=== PATIENT | male | born 1950 | race African-American/Black ===

== ENCOUNTER 2023-05-21 07:50 | Emergency (ER) | payer MEDICAID, SELFPAY ==
[2023-05-21 08:04] VITALS: BP 136/86; PULSE 108; RESP 20; TEMP 38.3; O2SAT 96; BMI 32.3
--- NOTE | 2023-05-21 08:21 | CRLHL7_ITS ---
For Patients: As a result of the Century Cures Act, medical imaging exams and procedure reports are released immediately into your electronic medical record. You may view this report before your referring provider. If you have questions, please contact your health care provider. Indication: Pain, fever Technique: Volumetric multidetector CT images of the abdomen and pelvis were obtained after the administration of intravenous contrast. 98 cc Isovue 370 low osmolar intravenous contrast Comparison: None available. Findings: There is minimal basilar atelectasis and parenchymal scar. Cystic changes are appreciated within right liver. There is no focal abnormality. The portal vein is patent. The gallbladder is unremarkable without evidence of radiopaque calculus. There is no significant common biliary ductal dilatation or abrupt cut off. The spleen is normal in enhancement and size. The stomach and duodenum are grossly unremarkable. The pancreas is normal in enhancement without significant atrophy. The adrenal glands are unremarkable. The kidneys demonstrate preserved corticomedullary differentiation without evidence of obstructive uropathy. There is moderate stool seen throughout the colon with distal colonic diverticulosis. There is no evidence of diverticulitis. There is minimal nonspecific fluid and hyperemia of mid to distal small bowel loops. There is questionable developing fecalization of distal loops of terminal ileum. The appendix is unremarkable. There is no significant mesenteric, retroperitoneal, or pelvic sidewall lymph nodes. The aorta is nonaneurysmal. There is no significant atherosclerotic disease appreciated. The solid pelvic viscera are grossly unremarkable. There is no free fluid or free air. There is a small fat containing umbilical hernia. There is mild diastasis of the rectus musculature. There is mild multilevel degenerative disc disease with endplate Schmorl`s defects. There is no significant spondylolisthesis or displaced fracture. Impression: Nonspecific fluid-filled central small bowel with mucosal hyperemia and mild inspissation of enteric contents in the distal terminal ileum which may represent enteritis changes and/or slow transit. No definite obstruction is identified. Otherwise, no definite acute intra-abdominal abnormality is identified. Cystic changes of the right liver lobe are appreciated. Please note that all CT scans at this facility use dose modulation, iterative reconstruction, and/or weight-based dosing when appropriate to reduce radiation dose to as low as reasonably achievable. Dictated by Jer Jesus MD @ 05/21/2023 10:19:28 AM (Electronically Signed)
--- NOTE | 2023-05-21 08:22 | CRLHL7_ITS ---
For Patients: As a result of the Cures Act, medical imaging exams and procedure reports are released immediately into your electronic medical record. You may view this report before your referring provider. If you have questions, please contact your health care provider. INDICATION: Fever COMPARISON: None TECHNIQUE: Single-view study May 21, 2023 FINDINGS: TUBES AND LINES: None. HEART AND MEDIASTINUM: The heart size is normal. The mediastinal contour appears normal for patient age. LUNGS AND PLEURAL SPACES: The lungs appear normal.The pleural spaces are unremarkable. OSSEOUS STRUCTURES: Age-appropriate appearance. No acute focal finding. IMPRESSION: No evidence of active pulmonary disease. Dictated by Gabino Vargas MD @ 05/21/2023 10:36:33 AM (Electronically Signed)
--- NOTE | 2023-05-21 08:23 | ED_ITS ---
HPI - General Adult General Time Seen by Provider: 08:24 Date Seen: 05/21/23 Chief complaint: Fever Stated complaint: rash Time Seen by Provider: 05/21/23 07:53 Source: patient Mode of arrival: ambulatory Limitations: no limitations History of Present Illness HPI narrative: Patient is a 72-year-old black male who has hives and has had a low-grade fever over the last 24 hours. He denies any other specific symptoms other than periumbilical abdominal pain. He denies dysuria, frequency, hematuria, diarrhea or constipation. He has had a hernia repair in the past in his abdomen by his report. He has no cough, no chest pain, no rigors. Patient has had no dysuria. Temp was noted to be 100.9 in the triage intake. Patient lives in [place]. He was seen in urgent care on Friday 2 days ago and started on prednisone he has not noticed much different and the hives. He denies any new medications or potential allergens. Does have a history of hypertension which he takes medication and he has chronic knee arthritis on the left that he takes meloxicam, as well as tamsulosin for prostate hypertrophy. Related Data Home Medications Medication Instructions Recorded Confirmed celecoxib 100 mg capsule 100 mg PO BID 05/21/23 05/21/23 cetirizine 10 mg tablet 10 mg PO DAILY 05/21/23 05/21/23 hydrochlorothiazide PO 05/21/23 hydrochlorothiazide 25 mg tablet 25 mg PO DAILY 05/21/23 05/21/23 meloxicam 7.5 mg tablet 7.5 mg PO DAILY 05/21/23 05/21/23 prednisone 10 mg tablet PO 05/21/23 rosuvastatin 10 mg tablet 10 mg PO QPM 05/21/23 05/21/23 tamsulosin 0.4 mg capsule 0.4 mg PO DAILY 05/21/23 05/21/23 Previous Rx's Medication Instructions Recorded ciprofloxacin HCl 500 mg tablet 500 mg PO BID #14 tabs 05/21/23 (Cipro) Allergies Allergy/AdvReac Type Severity Reaction Status Date / Time No Known Drug Allergies Allergy Verified 05/21/23 10:10 Review of Systems Status of ROS: Reports: 6 or more systems reviewed and unremarkable except as noted in History and below PFSH PFS Surgical History History of ventral hernia repair ?Z98.890 - Other specified postprocedural states (ICD-10) ?Z87.19 - Personal history of other diseases of the digestive system (ICD-10) Exam Narrative: Exam Narrative: Objective: Temp is 100.9? O2 sat 96% on room air In general patient is no apparent distress talks in even unlabored sentences, no cyanosis, he does have diffuse hives over his face neck, chest, back, legs. Lungs are clear Throat is clear Heart rhythm regular without murmur Abdomen benign soft no mass or peritonitis he does report periumbilical abdominal pain. No back pain No lower extremity swelling swelling or redness. Const: Vital Signs, click to edit/add: Vital Signs - 24 hr 05/21/23 08:04 05/21/23 09:19 05/21/23 10:37 Temperature 100.9 F H Pulse Rate 105 H Pulse Rate [Pulse Oximeter] 108 H Respiratory Rate 20 Blood Pressure 128/80 Blood Pressure [Ri ght Upper Arm] 136/86 Pulse Oximetry 96 98 Oxygen Delivery Me thod Room Air 05/21/23 10:45 Temperature Pulse Rate 99 Pulse Rate [Pulse Oximeter] Respiratory Rate Blood Pressure Blood Pressure [Ri ght Upper Arm] Pulse Oximetry 97 Oxygen Delivery Me thod Course Vital Signs Vital signs: Initial Vital Signs Temperature 100.9 F H 05/21/23 08:04 Temperature Source Temporal Artery Scan 05/21/23 08:04 Pulse Rate 108 H 05/21/23 08:04 Pulse Rhythm Regular 05/21/23 08:04 Respiratory Rate 20 05/21/23 08:04 Blood Pressure 136/86 05/21/23 08:04 Blood Pressure Mean 102 05/21/23 08:04 Pulse Oximetry 96 05/21/23 08:04 Oxygen Delivery Method Room Air 05/21/23 08:04 Vital Signs Temperature 100.9 F H 05/21/23 08:04 Pulse Rate 108 H 05/21/23 08:04 Respiratory Rate 20 05/21/23 08:04 Blood Pressure 136/86 05/21/23 08:04 Pulse Oximetry 96 05/21/23 08:04 Oxygen Delivery Method Room Air 05/21/23 08:04 Temperature 100.9 F H 05/21/23 08:04 Pulse Rate 99 05/21/23 10:45 Respiratory Rate 20 05/21/23 08:04 Blood Pressure 128/80 05/21/23 09:19 Pulse Oximetry 97 05/21/23 10:45 Oxygen Delivery Method Room Air 05/21/23 08:04 Medical Decision Making MDM Narrative Medical decision making narrative: 9-year-old black male with a few day history of hives as well as now low-grade fever. Rule out infectious source, blood cultures, will get a COVID/influenza/RSV test, will get a CRP, laboratory studies, will give IV fluid, IV Solu-Medrol and IV Benadryl. Will get a CT scan of his abdomen because he has periumbilical abdominal pain and this fever. Disposition pending findings above and response.\ Addendum 10:45 a.m. patient's labs look reassuring other than his CRP is elevated 8.3. His urinalysis also shows 1+ leukocyte esterase 10-25 white cells per high-powered field and bacteria, his viral studies are negative. He will be given IV Rocephin for his presumed UTI. Will also cover him with Cipro 500 b.i.d. times 7 days. Light activity, light diet recommended. Follow up with primary care in 2-3 days. Return to ED sooner problems or concerns. Lab Data Labs: Lab Results 05/21/23 05/21/23 05/21/23 Range/Units 09:00 09:05 09:07 WBC 9.07 (4.50-11.00) K/uL RBC 5.51 (4.30-5.90) m/uL Hgb 15.7 (13.5-17.5) gm/dL Hct 48.1 (37.0-53.0) % MCV 87 (80-100) fL MCH 29 (26-34) pg MCHC 33 (32-36) gm/dL RDW Coeff of Indra 13.0 (11.5-15.5) % Plt Count 180 (140-440) K/uL Neut % (Auto) 82.3 H (42.0-72.0) % Lymph % (Auto) 11.5 L (20-44) % [place] % (Auto) 5.8 (0.0-11.0) % Eos % (Auto) 0.1 (0.0-7.0) % Baso % (Auto) 0.1 (0.0-3.0) % Neut # (Auto) 7.50 H (1.7-7.0) K/uL Lymph # (Auto) 1.00 (0.90-2.90) K/uL [place] # (Auto) 0.50 (0.00-0.90) K/UL Eos # (Auto) 0.01 (0.00-0.50) K/uL Baso # (Auto) 0.01 (0.00-0.30) K/uL Abs Immat Gran (auto) 0.02 (0.00-0.30) K/uL Imm/Tot Granulo (auto) 0.2 % Sodium 133 L (135-149) mmol/L Potassium 3.3 L (3.6-5.1) mmol/L Chloride 101 (96-114) mmol/L Carbon Dioxide 22 (20-32) mmol/L Anion Gap 10 (7-15) mEq/L BUN 21 (7-30) mg/dL Creatinine 0.8 (0.5-1.5) mg/dL Estimated Creat Clear 62.03 Estimated GFR 95 ml/min Glucose 147 H (60-115) mg/dL Calcium 8.2 L (8.4-10.6) mg/dL Total Bilirubin 1.0 (0.1-1.5) mg/dL Direct Bilirubin 0.0 (0.0-0.5) mg/dL AST 41 H (12-35) U/L ALT 21 (4-50) U/L Alkaline Phosphatase 43 (40-150) U/L C-Reactive Protein 8.3 H (0.5-1.0) mg/dL Total Protein 6.3 (6.0-8.3) g/dL Albumin 3.6 (3.3-5.0) g/dL Amylase 75 (18-89) U/L Urine Color (Yellow) Urine Appearance (Clear) Urine pH (5.0-8.5) Ur Specific [place] (1.000-1.030) Urine Protein (Negative) Urine Glucose (UA) (Negative) Urine Ketones (Negative) Urine Blood (Negative) Urine Nitrite (Negative) Urine Bilirubin (Negative) Urine Urobilinogen (0.2-1.0) Ur Leukocyte Esterase (Negative) Urine RBC (0-2) Urine WBC (0-5) Ur Squamous Epith Cells (None-Few) Urine Bacteria (None) SARS-CoV-2 (PCR) Negative SARS-CoV-2 (Negative) Influenza Type A (PCR) Negative PCR FLU A (Negative) Influenza Type B (PCR) Negative PCR FLU B (Negative) RSV (PCR) Negative PCR RSV (Negative) POC Troponin I 0.02 (0.01-0.04) ng/ml 05/21/23 Range/Units 09:56 WBC (4.50-11.00) K/uL RBC (4.30-5.90) m/uL Hgb (13.5-17.5) gm/dL Hct (37.0-53.0) % MCV (80-100) fL MCH (26-34) pg MCHC (32-36) gm/dL RDW Coeff of Indra (11.5-15.5) % Plt Count (140-440) K/uL Neut % (Auto) (42.0-72.0) % Lymph % (Auto) (20-44) % [place] % (Auto) (0.0-11.0) % Eos % (Auto) (0.0-7.0) % Baso % (Auto) (0.0-3.0) % Neut # (Auto) (1.7-7.0) K/uL Lymph # (Auto) (0.90-2.90) K/uL [place] # (Auto) (0.00-0.90) K/UL Eos # (Auto) (0.00-0.50) K/uL Baso # (Auto) (0.00-0.30) K/uL Abs Immat Gran (auto) (0.00-0.30) K/uL Imm/Tot Granulo (auto) % Sodium (135-149) mmol/L Potassium (3.6-5.1) mmol/L Chloride (96-114) mmol/L Carbon Dioxide (20-32) mmol/L Anion Gap (7-15) mEq/L BUN (7-30) mg/dL Creatinine (0.5-1.5) mg/dL Estimated Creat Clear Estimated GFR ml/min Glucose (60-115) mg/dL Calcium (8.4-10.6) mg/dL Total Bilirubin (0.1-1.5) mg/dL Direct Bilirubin (0.0-0.5) mg/dL AST (12-35) U/L ALT (4-50) U/L Alkaline Phosphatase (40-150) U/L C-Reactive Protein (0.5-1.0) mg/dL Total Protein (6.0-8.3) g/dL Albumin (3.3-5.0) g/dL Amylase (18-89) U/L Urine Color Yellow (Yellow) Urine Appearance Clear (Clear) Urine pH 6.0 (5.0-8.5) Ur Specific [place] 1.025 (1.000-1.030) Urine Protein 2+ A (Negative) Urine Glucose (UA) Negative (Negative) Urine Ketones Negative (Negative) Urine Blood Trace-intact A (Negative) Urine Nitrite Negative (Negative) Urine Bilirubin Negative (Negative) Urine Urobilinogen 0.2 (0.2-1.0) Ur Leukocyte Esterase 1+ A (Negative) Urine RBC 0-2 (0-2) Urine WBC 10-25 A (0-5) Ur Squamous Epith Cells None (None-Few) Urine Bacteria Few A (None) SARS-CoV-2 (PCR) (Negative) Influenza Type A (PCR) (Negative) Influenza Type B (PCR) (Negative) RSV (PCR) (Negative) POC Troponin I (0.01-0.04) ng/ml Discharge Plan Discharge Clinical Impression: Fever, Urticaria, Urinary tract infection Patient Disposition: Home w/ Parent or Adult Condition: Stable Instructions: Urinary Tract Infection in Men (ED), Urticaria (ED) Additional Instructions: Light diet, start with fluids and advance to Jell-O and soup as able. Would recommend you continue on antibiotic in the form of Cipro 2 times a day for the next 7 days. Recheck with your regular doctor next 2-3 days. Finish your prednisone, use Benadryl 25-50 mg 3 times a day over the next 3-5 days. Return to emergency department problems or concerns. Would use Benadryl instead of the cetirizine for Allergy and hives Activity Level: Light activity Discharge Diet: Full Liquid Prescriptions: New ciprofloxacin HCl [Cipro] 500 mg tablet 500 mg PO BID Qty: 14 0RF No Action hydrochlorothiazide PO cetirizine 10 mg tablet 10 mg PO DAILY meloxicam 7.5 mg tablet 7.5 mg PO DAILY tamsulosin 0.4 mg capsule 0.4 mg PO DAILY hydrochlorothiazide 25 mg tablet 25 mg PO DAILY celecoxib 100 mg capsule 100 mg PO BID rosuvastatin 10 mg tablet 10 mg PO QPM prednisone 10 mg tablet PO Stand Alone Forms: My[facility] Info Instructions
[2023-05-21 09:19] VITALS: BP 128/80
[2023-05-21] MEDS: METHYLPREDNISOLONE SOD SUCC 62.5 MG/ML (125) 125 MG IVP (09:20)
[2023-05-21] MEDS: diphenhydrAMINE 50 MG/ML inj 25 MG IVP (09:20)
[2023-05-21] MEDS: 0.9 % SODIUM CHLORIDE 1000 ml 1,000 ML 6000 ML IV (09:20)
[2023-05-21 09:21] LABS: Basophils Absolute Auto 0.01 K/uL (0.00-0.30); Basophils Percent Auto 0.1 % (0.0-3.0); Eosinophils Absolute Auto 0.01 K/uL (0.00-0.50); Eosinophils Percent Auto 0.1 % (0.0-7.0); Hematocrit 48.1 % (37.0-53.0); Hemoglobin* 15.7 gm/dL (13.5-17.5); Immature Granulocytes Abs Auto 0.02 K/uL (0.00-0.30); Immature Granulocytes Pct Auto 0.2 %; Lymphocytes Percent Auto 11.5 % (20-44); Mean Corpuscular HGB Conc 33 gm/dL (32-36); Mean Corpuscular Hemoglobin 29 pg (26-34); Mean Corpuscular Volume 87 fL (80-100); Monocytes Percent Auto 5.8 % (0.0-11.0); Neutrophils Percent Auto 82.3 % (42.0-72.0); Platelet Count* 180 K/uL (140-440); Red Blood Count 5.51 m/uL (4.30-5.90); White Blood Count* 9.07 K/uL (4.50-11.00)
[2023-05-21 09:28] LABS: Slide Review Reflex No
[2023-05-21 09:37] LABS: Albumin* 3.6 g/dL (3.3-5.0)
[2023-05-21 09:38] LABS: Chloride* 101 mmol/L (96-114); Potassium* 3.3 mmol/L (3.6-5.1); Sodium* 133 mmol/L (135-149)
[2023-05-21 09:40] LABS: Amylase* 75 U/L (18-89); Creatinine* 0.8 mg/dL (0.5-1.5); Est. Creatinine Clearance* 62.03; Estimated Glomerular Filt Rate 95 ml/min
[2023-05-21 09:41] LABS: Alanine Aminotransferase* 21 U/L (4-50); Alkaline Phosphatase* 43 U/L (40-150); Anion Gap 10 mEq/L (7-15); Aspartate Amino Transferase* 41 U/L (12-35); Blood Urea Nitrogen* 21 mg/dL (7-30); Calcium* 8.2 mg/dL (8.4-10.6); Carbon Dioxide* 22 mmol/L (20-32); Glucose* 147 mg/dL (60-115); Total Protein* 6.3 g/dL (6.0-8.3)
[2023-05-21 09:44] LABS: C Reactive Protein* 8.3 mg/dL (0.5-1.0)
[2023-05-21 09:59] LABS: PCR FLU A Negative PCR FLU A (Negative); PCR FLU B Negative PCR FLU B (Negative); PCR RSV Negative PCR RSV (Negative)
[2023-05-21 10:01] LABS: SARS PCR* Negative SARS-CoV-2 (Negative)
[2023-05-21 10:09] LABS: Troponin, Point-of-Care* 0.02 ng/ml (0.01-0.04)
[2023-05-21 10:16] LABS: Appearance Urine Clear (Clear); Bilirubin Urine Negative (Negative); Blood Urine Trace-intact (Negative); Color Urine Yellow (Yellow); Glucose Urine Negative (Negative); Ketones Urine Negative (Negative); Leukocyte Esterase Urine 1+ (Negative); Nitrite Urine Negative (Negative); Protein Urine 2+ (Negative); Specific Gravity Urine 1.025 (1.000-1.030); Urobilinogen Urine 0.2 (0.2-1.0)
[2023-05-21 10:22] LABS: Bacteria Urine Few; RBC Urine 0-2 (0-2)
[2023-05-21] MEDS: ACETAMINOPHEN 500 MG TABLET 1000 MG PO (10:30)
[2023-05-21 10:37] VITALS: PULSE 105; O2SAT 98
[2023-05-21 10:45] VITALS: PULSE 99; O2SAT 97
[2023-05-21] MEDS: cefTRIAXone 1 GM in 0.9 % SODIUM CHLORIDE Mini-bag 100 ML IVPB (11:08)
== END 2023-05-21 12:04 | disposition home or self-care (01) ==
PROVIDERS: Emergency Provider Family Medicine
DX: N39.0 Urinary tract infection, site not specified (principal); L50.9 Urticaria, unspecified; R50.9 Fever, unspecified
CPT/HCPCS: 36415; 71045; 74177; 80048; 80076; 81001; 82150; 84484; 85025; 86140; 87040; 87086; 87631; 96365; 96375; 99284; 99285; A9270; J0696; J1200; J2930; J7030; Q9967

== ENCOUNTER 2023-05-23 09:07 | Emergency (ER) | payer MEDICAID, SELFPAY ==
[2023-05-23] VITALS (10 sets, daily range): BP systolic 126–148; BP diastolic 77–92; PULSE 76–99; RESP 18; TEMP 36.8; O2SAT 88–99; BMI 32.3
--- NOTE | 2023-05-23 09:31 | CRLHL7_ITS ---
For Patients: As a result of the Century Cures Act, medical imaging exams and procedure reports are released immediately into your electronic medical record. You may view this report before your referring provider. If you have questions, please contact your health care provider. INDICATION: Abdominal pain COMPARISON: CT 05/21/2023 TECHNIQUE: 2 view abdominal radiograph. FINDINGS: No dilated bowel loops. Moderate stool burden. No worrisome air fluid levels. No free air. No organomegaly or mass effect. No worrisome calcifications. Lung bases: Clear. Bones: Transitional lumbosacral segment with mild disc degenerative change and facet arthritis. Bilateral hip osteoarthritis. No acute osseous findings. IMPRESSION: Normal abdominal radiographs. Moderate stool. No bowel obstruction. Dictated by Ivy Carreno MD @ 05/23/2023 10:26:42 AM (Electronically Signed)
[2023-05-23 09:48] LABS: Lactate* 1.1 mmol/L (0.5-1.9)
[2023-05-23 09:51] LABS: Basophils Absolute Auto 0.01 K/uL (0.00-0.30); Basophils Percent Auto 0.1 % (0.0-3.0); Eosinophils Absolute Auto 0.01 K/uL (0.00-0.50); Eosinophils Percent Auto 0.1 % (0.0-7.0); Hematocrit 44.6 % (37.0-53.0); Hemoglobin* 14.6 gm/dL (13.5-17.5); Immature Granulocytes Abs Auto 0.02 K/uL (0.00-0.30); Immature Granulocytes Pct Auto 0.3 %; Lymphocytes Percent Auto 18.6 % (20-44); Mean Corpuscular HGB Conc 33 gm/dL (32-36); Mean Corpuscular Hemoglobin 29 pg (26-34); Mean Corpuscular Volume 88 fL (80-100); Monocytes Percent Auto 3.8 % (0.0-11.0); Neutrophils Percent Auto 77.1 % (42.0-72.0); Platelet Count* 222 K/uL (140-440); RDW Coefficient of Variation % 13.1 % (11.5-15.5); White Blood Count* 6.81 K/uL (4.50-11.00)
[2023-05-23 09:55] LABS: Slide Review Reflex No; Troponin, Point-of-Care* 0.01 ng/ml (0.01-0.04)
[2023-05-23] MEDS: PROCHLORPERAZINE 5 MG/ML VIAL 10 MG IV (09:56)
[2023-05-23] MEDS: 0.9 % SODIUM CHLORIDE 1000 ml 1,000 ML IV (09:56)
--- NOTE | 2023-05-23 10:05 | ED_ITS ---
HPI - Chest Pain General Date Seen: 05/23/23 Chief Complaint: Unspecified Complaint, Adult Stated Complaint: Hiccups, chest/throat pain Time Seen by Provider: 05/23/23 09:27 Source: patient Mode of arrival: ambulatory Limitations: no limitations History of Present Illness HPI narrative: Patient is a 72-year-old gentleman who presents here, with the pickups, throat discomfort, vomiting. He was seen 2 days ago in the emergency room at that point, CT was done of his abdomen, which showed fecalization, into the small bowel, he does have a history of a previous abdominal operation, not here, but he tells me for small bowel obstruction. Denies any fevers or chills associated with this but he has been unable to he anything for couple days he is passing his bowels, it least gases. He has no dysuria frequency there is no rashes. He was started on antibiotics, presumed UTI a couple days ago. Has some chest discomfort also so seated with this hiccuping. No radiation, no shortness of breath. Risk Factors Thoracic aortic dissection risk factors: none Related Data Home Medications Medication Instructions Recorded Confirmed celecoxib 100 mg capsule 100 mg PO BID 05/21/23 05/21/23 cetirizine 10 mg tablet 10 mg PO DAILY 05/21/23 05/21/23 hydrochlorothiazide PO 05/21/23 hydrochlorothiazide 25 mg tablet 25 mg PO DAILY 05/21/23 05/21/23 meloxicam 7.5 mg tablet 7.5 mg PO DAILY 05/21/23 05/21/23 prednisone 10 mg tablet PO 05/21/23 rosuvastatin 10 mg tablet 10 mg PO QPM 05/21/23 05/21/23 tamsulosin 0.4 mg capsule 0.4 mg PO DAILY 05/21/23 05/21/23 Previous Rx's Medication Instructions Recorded ciprofloxacin HCl 500 mg tablet 500 mg PO BID #14 tabs 05/21/23 (Cipro) prochlorperazine maleate 5 mg 5 mg PO QID PRN #20 tabs 05/23/23 tablet (Compazine) Allergies Allergy/AdvReac Type Severity Reaction Status Date / Time No Known Drug Allergies Allergy Verified 05/21/23 10:10 Review of Systems Status of ROS Reports: 10 or more systems reviewed and unremarkable except as noted in History and below PFSH PFSH Surgical History History of ventral hernia repair ?Z98.890 - Other specified postprocedural states (ICD-10) ?Z87.19 - Personal history of other diseases of the digestive system (ICD-10) Exam Narrative Exam Narrative: Patient is no apparent distress seen in room 8, he is more concerned about telling me about the itchiness of his lower legs and some burning that he has bilaterally. I explained to him that I would like him this deal with the ER visits and we will leave the rest up to his primary care physician. His pupils are equal round reactive to light there is no scleral icterus redness is TMs are normal his oropharynx is normal, there is no adenopathy anterior posterior chains, his chest is good air entry bilaterally with no wheezing crackles noted his heart sounds are normal his abdomen is soft and protuberant there is no guarding, no tenderness to palpation, is bowel sounds are normal in all quadrants. There is no CVA tenderness, moves all extremities independently and well. No edema is noted of his lower extremities, neurologically intact. Const Vital Signs, click to edit/add: Vital Signs - 24 hr 05/23/23 09:12 05/23/23 09:43 05/23/23 10:00 Temperature 98.3 F Pulse Rate 85 Pulse Rate [Right Pulse Oximeter] 99 Respiratory Rate 18 Blood Pressure Blood Pressure [Right Upper Arm] 148/92 H Pulse Oximetry 98 90 97 Oxygen Delivery Method Room Air 05/23/23 10:02 05/23/23 10:30 05/23/23 10:32 Temperature Pulse Rate 76 76 Pulse Rate [Right Pulse Oximeter] Respiratory Rate Blood Pressure 127/85 126/82 Blood Pressure [Right Upper Arm] Pulse Oximetry 88 96 96 Oxygen Delivery Method 05/23/23 11:00 05/23/23 11:02 05/23/23 11:30 Temperature Pulse Rate 76 80 82 Pulse Rate [Right Pulse Oximeter] Respiratory Rate Blood Pressure 135/79 Blood Pressure [Right Upper Arm] Pulse Oximetry 97 95 99 Oxygen Delivery Method 05/23/23 11:32 Temperature Pulse Rate 88 Pulse Rate [Right Pulse Oximeter] Respiratory Rate Blood Pressure 135/77 Blood Pressure [Right Upper Arm] Pulse Oximetry 95 Oxygen Delivery Method Documenting provider has reviewed patient's vital signs: yes Course Course ED Course: Patient is a hiccups did resolve but then return pre discharge we gave him another 5 mg of Compazine. Flattened operating x-ray was negative, otherwise showing stool, which I think is the root of the issue. 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 Follow-up with primary care is suggested. Vital Signs Vital signs: Initial Vital Signs Temperature 98.3 F 05/23/23 09:12 Temperature Source Temporal Artery Scan 05/23/23 09:12 Pulse Rate 99 05/23/23 09:12 Respiratory Rate 18 05/23/23 09:12 Blood Pressure 148/92 H 05/23/23 09:12 Blood Pressure Mean 110 H 05/23/23 09:12 Blood Pressure Position Sitting 05/23/23 09:12 Pulse Oximetry 98 05/23/23 09:12 Oxygen Delivery Method Room Air 05/23/23 09:12 Vital Signs Temperature 98.3 F 05/23/23 09:12 Pulse Rate 99 05/23/23 09:12 Respiratory Rate 18 05/23/23 09:12 Blood Pressure 148/92 H 05/23/23 09:12 Pulse Oximetry 98 05/23/23 09:12 Oxygen Delivery Method Room Air 05/23/23 09:12 Temperature 98.3 F 05/23/23 09:12 Pulse Rate 88 05/23/23 11:32 Respiratory Rate 18 05/23/23 09:12 Blood Pressure 135/77 05/23/23 11:32 Pulse Oximetry 95 05/23/23 11:32 Oxygen Delivery Method Room Air 05/23/23 09:12 MDM - Chest Pain MDM Narrative Medical decision making narrative: Differential diagnosis here is multiple including chest pain, verses abdominal pain, small-bowel obstruction, or other issues. I discussed with him that since he had the CT scan we will do a flat and upright examination with the x-ray, along with laboratory work, he was placed on Cipro, which can give some QT prolongation. Fortunately his QT is normal, on the EKG. We can use some Compazine Medical Records Data Attestation: I reviewed the patient's medical records. Lab Data Attestation: I reviewed the patient's lab results. Labs: Lab Results 05/23/23 05/23/23 Range/Units 09:40 Unknown WBC 6.81 (4.50-11.00) K/uL RBC 5.10 (4.30-5.90) m/uL Hgb 14.6 (13.5-17.5) gm/dL Hct 44.6 (37.0-53.0) % MCV 88 (80-100) fL MCH 29 (26-34) pg MCHC 33 (32-36) gm/dL RDW Coeff of Indra 13.1 (11.5-15.5) % Plt Count 222 (140-440) K/uL Neut % (Auto) 77.1 H (42.0-72.0) % Lymph % (Auto) 18.6 L (20-44) % [place] % (Auto) 3.8 (0.0-11.0) % Eos % (Auto) 0.1 (0.0-7.0) % Baso % (Auto) 0.1 (0.0-3.0) % Neut # (Auto) 5.30 (1.7-7.0) K/uL Lymph # (Auto) 1.30 (0.90-2.90) K/uL [place] # (Auto) 0.30 (0.00-0.90) K/UL Eos # (Auto) 0.01 (0.00-0.50) K/uL Baso # (Auto) 0.01 (0.00-0.30) K/uL Abs Immat Gran (auto) 0.02 (0.00-0.30) K/uL Imm/Tot Granulo (auto) 0.3 % Sodium 136 (135-149) mmol/L Potassium 3.3 L (3.6-5.1) mmol/L Chloride 104 (96-114) mmol/L Carbon Dioxide 23 (20-32) mmol/L Anion Gap 9 (7-15) mEq/L BUN 22 (7-30) mg/dL Creatinine 0.9 (0.5-1.5) mg/dL Estimated Creat Clear 62.03 Estimated GFR 92 ml/min Glucose 95 (60-115) mg/dL Lactate 1.1 (0.5-1.9) mmol/L Calcium 8.2 L (8.4-10.6) mg/dL Total Bilirubin 1.1 (0.1-1.5) mg/dL Direct Bilirubin 0.0 (0.0-0.5) mg/dL AST 67 H (12-35) U/L ALT 53 H (4-50) U/L Alkaline Phosphatase 49 (40-150) U/L C-Reactive Protein 15.1 H (0.5-1.0) mg/dL Total Protein 6.2 (6.0-8.3) g/dL Albumin 3.4 (3.3-5.0) g/dL Amylase 63 (18-89) U/L Lipase 68 (23-300) U/L Procalcitonin 0.29 (<0.50) ng/mL SARS-CoV-2 (PCR) Negative SARS-CoV-2 (Negative) Influenza Type A (PCR) Negative PCR FLU A (Negative) Influenza Type B (PCR) Negative PCR FLU B (Negative) RSV (PCR) Negative PCR RSV (Negative) POC Troponin I 0.01 (0.01-0.04) ng/ml Imaging Data Flat and upright abdominal film: Attestation: I have reviewed the pertinent imaging results. My impression: No evidence of air-fluid levels, no evidence of small-bowel obstruction, generous stool Radiologist's impression: atient: FESTUS MEHTA Facility:?[facility] Patient ID:?[id number] Site Patient ID:?[id number]. Site :?[id number] Study:?XRay Abdomen FLAT/UPRIGHT-05/23/2023 10:23:31 AM Ordering Physician:Julio England Final Report: INDICATION: Abdominal pain COMPARISON: CT 05/21/2023 TECHNIQUE: 2 view abdominal radiograph. FINDINGS: No dilated bowel loops. Moderate stool burden. No worrisome air fluid levels. No free air. No organomegaly or mass effect. No worrisome calcifications. Lung bases: Clear. Bones: Transitional lumbosacral segment with mild disc degenerative change and facet arthritis. Bilateral hip osteoarthritis. No acute osseous findings. IMPRESSION: Normal abdominal radiographs. Moderate stool. No bowel obstruction. ECG Data Attestation: I personally reviewed and interpreted this ECG as follows: Interpretation: EKG shows normal sinus rhythm, with a ventricular rate 85, no acute ST wave changes. Assessment normal EKG Discharge Plan Discharge Clinical Impression: Chronic pruritus, Hiccups, Constipation Patient Disposition: Home, Self-Care Condition: Stable Instructions: Constipation (DC), Hiccups (ED), Itchy Skin (ED) Additional Instructions: I believe this is problem is stemming from the backup stool. Would recommend MiraLax 1 cap full with 20 oz of water twice daily for the next 3-4 days. This should help evacuate your colon. Overall will help the situation. Take the Compazine as needed, with primary care. Activity Level: Light activity Prescriptions: New prochlorperazine maleate [Compazine] 5 mg tablet 5 mg PO QID PRNQty: 20 0RF No Action hydrochlorothiazide PO cetirizine 10 mg tablet 10 mg PO DAILY meloxicam 7.5 mg tablet 7.5 mg PO DAILY tamsulosin 0.4 mg capsule 0.4 mg PO DAILY hydrochlorothiazide 25 mg tablet 25 mg PO DAILY celecoxib 100 mg capsule 100 mg PO BID rosuvastatin 10 mg tablet 10 mg PO QPM prednisone 10 mg tablet PO ciprofloxacin HCl [Cipro] 500 mg tablet 500 mg PO BID Qty: 14 0RF Follow Up/Referrals: JERRICA YOUNGER DO [Primary Care Provider] - Stand Alone Forms: [employer] Info Instructions
[2023-05-23 10:07] LABS: Albumin* 3.4 g/dL (3.3-5.0); Chloride* 104 mmol/L (96-114); Sodium* 136 mmol/L (135-149)
[2023-05-23 10:08] LABS: Potassium* 3.3 mmol/L (3.6-5.1)
[2023-05-23 10:09] LABS: Creatinine* 0.9 mg/dL (0.5-1.5); Est. Creatinine Clearance* 62.03; Estimated Glomerular Filt Rate 92 ml/min
[2023-05-23 10:10] LABS: Anion Gap 9 mEq/L (7-15); Aspartate Amino Transferase* 67 U/L (12-35); Bilirubin Total* 1.1 mg/dL (0.1-1.5); Carbon Dioxide* 23 mmol/L (20-32); Total Protein* 6.2 g/dL (6.0-8.3)
[2023-05-23 10:11] LABS: Alanine Aminotransferase* 53 U/L (4-50); Alkaline Phosphatase* 49 U/L (40-150); Amylase* 63 U/L (18-89); Blood Urea Nitrogen* 22 mg/dL (7-30); Calcium* 8.2 mg/dL (8.4-10.6); Glucose* 95 mg/dL (60-115); Lipase* 68 U/L (23-300)
[2023-05-23 10:26] LABS: C Reactive Protein* 15.1 mg/dL (0.5-1.0)
[2023-05-23 10:27] LABS: Procalcitonin* 0.29 ng/mL (<0.50)
[2023-05-23 10:28] LABS: PCR FLU A Negative PCR FLU A (Negative); PCR FLU B Negative PCR FLU B (Negative); PCR RSV Negative PCR RSV (Negative)
[2023-05-23 10:38] LABS: SARS PCR* Negative SARS-CoV-2 (Negative)
== END 2023-05-23 12:05 | disposition home or self-care (01) ==
PROVIDERS: Emergency Provider Family Medicine; PCP Student in an Organized Health Care Education/Training Program
DX: L29.8 Other pruritus (principal); R06.6 Hiccough; K59.00 Constipation, unspecified
CPT/HCPCS: 36415; 74019; 80048; 80076; 81001; 82150; 83605; 83690; 84145; 84484; 85025; 86140; 87631; 93005; 96374; 96375; 99284; 99285; J0780; J7030